=== PATIENT | male | born 1955 | race Caucasian/White ===

== ENCOUNTER → 2016-08-29 | Day surgery (SDC) | payer MEDICARE, BC ==
[~2016-08-29] MED LIST: GENTAMICIN SULFATE 80 MG/2 ML VIAL ONE; IOHEXOL 180 MG/ML 20 ML VIAL (for RAD DIAG) ONE; LACTATED RINGER'S 1000 ML INJ 1,000 ML ONE; MEPERIDINE HCL 50 MG/ML VIAL ONE; MIDAZOLAM HCL 2 MG/2 ML VIAL ONE; ONDANSETRON HCL 4 MG/2 ML VIAL IV PUSH ONE; PROPOFOL 100 MG/10 ML INJ IV ONE; SODIUM CHLORIDE 0.9% SOLN 100 ML (PAB) BAG IV ONE
--- NOTE | 2016-08-29 14:34 | TN ---
cc: CAREN SPRAGUE M.D. DATE OF SURGERY: 08/29/2016 PREOPERATIVE DIAGNOSIS Proximal to mid right ureteral calculus (5 mm), (ICD-10 code N20.1). POSTOPERATIVE DIAGNOSIS Proximal to mid right ureteral calculus (5 mm), (ICD-10 code N20.1). PROCEDURE 1. Cystourethroscopy with right ureteroscopy and attempted holmium laser lithotripsy (CPT code 46441). 2. Cystourethroscopy with right retrograde pyelography and right ureteral stent placement (6-Israeli x 24 cm), (CPT code 81374). INDICATION Mr. Pcek is a 60-year-old gentleman with recurrent urolithiasis who recently had a symptomatic 5 mm proximal to mid right ureteral calculus who presents now for definitive treatment. 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 The prostate showed bilateral hyperplasia with moderate obstruction. The bladder neck was elevated and hypertrophic. The trigone showed ureteral orifices normal size, shape and position, effluxing clear urine bilaterally. The bladder showed no tumors, stones or diverticula, no trabeculations or cellules. The right retrograde pyelogram was nondiagnostic and no evidence of dilatation or stone was easily identified. PROCEDURE IN DETAIL The procedure as well as risks and benefits were explained as follows. The patient was taken to the major operating theatre, was placed in supine position. The patient was identified as well as the operative site. A universal timeout was performed in a standard fashion. At this time general anesthetic and prophylactic intravenous antibiotics were administered. After adequate anesthetic he was placed in the low dorsal lithotomy position, prepped and draped in the usual sterile fashion. At this time a 22.5 Israeli cystoscope with a 30-degree lens was inserted into the urethra and bladder with minimal difficulty. After a systematic survey of the bladder, attention was directed to the right ureteral orifice were an 8-Israeli cone-tip catheter was inserted into the ureteral meatus and dilute radiopaque contrast was injected under fluoroscopic guidance. The mid to proximal ureter was difficult to opacify, possibly due to the patient's body habitus and the cone-tip was exchanged for an open-ended catheter which was then placed in the mid ureter and radiopaque contrast was injected. No obvious stone was identified. A guidewire was then exchanged for the open-ended catheter using a 0.035 inch hybrid wire passed under fluoroscopic guidance up the ureter into the renal pelvis. The cystoscope was then removed and a semirigid mini ureteroscope was then placed over the wire and we were able to enter into the distal ureter just about the junction of the distal to mid ureter. However, as in the past, due to the patient's morbid obesity, the narrowness of the undilated ureter, we are unable to pass it further due to safety concerns. The decision was made to abort the case and perform passive dilation with stent placement and come back in approximately 1-2 weeks for definitive treatment. At this time the ureteroscope was removed and the cystoscope was back-loaded onto a safety wire. The cystoscope was placed back into the bladder over the wire and under a combination of direct vision and fluoroscopic guidance a 6-Israeli x 24 cm double-J ureteral stent was placed with the help of a pusher. The proximal end could be seen under fluoroscopy in the renal pelvis. The pusher and guide were then removed. There was a nice curl within the bladder. The bladder was then decompressed and the cystoscope removed. The patient tolerated the procedure well, emerged from anesthetic without difficulty and was transferred to Recovery in stable condition to be discharged home when criteria is met. There were no obvious complications. The patient will require additional ureteroscopic treatment after passive dilation of the ureter. MD BHAVYA Rivera/CHE /2:16 PM /2:27 PM
== END | disposition home or self-care (01) ==
LOC: ESDC 10:17
PROVIDERS: ATTEND Urology
DX: N20.1 Calculus of ureter (principal)
CPT/HCPCS: 00910; 52332; 52351; 76000; C1769; J1580; J2175; J2250; J2405; J3010; J7120; Q9965